=== PATIENT | female | born 1990 | race Caucasian/White ===

== ENCOUNTER → 2019-06-15 13:51 | Outpatient (CLI) | payer OTHER, MEDICAID, SELFPAY ==
--- NOTE | 2019-06-15 13:55 | DI.US.S_ITS ---
PROCEDURE: US OB >= 14 WEEKS FETUS INDICATIONS: DATES AND VIABILITY OUTSIDE/PRIOR DATING DATA: Last menstrual period (LMP): 03/05/19. LMP-based estimated date of delivery (CARRILLO): 12/10/19. First dating scan (date and location): 06/15/19. Estimated date of delivery (CARRILLO) from first dating scan: 12/07/19. TECHNIQUE: Real-time scanning was performed of the fetus, with image documentation and biometric measurements. Endovaginal scanning: No COMPARISON: None. FINDINGS: General: A single living intrauterine gestation is present. Presentation: Transverse. Placenta: Placental position is anterior, and low lying with the inferior margin of the placenta 1.9 cm above the internal cervical os. Amniotic fluid index: Subjectively normal. heart rate: 150 beats per minute. Maternal cervical canal: 3.2 cm long. Normal lower limit is 2.5 cm. biometrics: Biparietal diameter: 15 weeks 3 days Head circumference: 15 weeks 1 day Abdominal circumference: 15 weeks Femur length: 14 weeks 6 days Estimated gestational age from initial scan: not applicable. Composite gestational age from present scan: 15 weeks there is Estimated weight and percentile: N./A. Measurement variability for biometric dating: +/- 7 days from 14 weeks to 15 weeks 6 days gestation, +/- 10 days from 16 weeks to 21 weeks 6 days gestation, +/- 2 weeks from 22 weeks to 27 weeks 6 days gestation, +/- 3 weeks for 28 weeks gestation or later. weight reference: 4500 g or EFW >90/95% is considered macrosomia or large for gestational age. EFW <10% is small for gestational age. EFW 5% or less is considered intra-uterine growth restriction. IMPRESSION: 1. A 15 week 0 day single living IUP corresponding to ultrasound CARRILLO of 12/07/2019. 2. Recommend anatomic survey between 18 and 20 weeks. 3. Low-lying placenta which can be reassessed on followup examination. Dictated by: Ignacio Jameson Dash Interpreted: Antonina Mcbride MD on 06/15/2019 at 16:34 Approved by: Antonina Mcbride M.D. on 06/15/2019 at 18:55
== END ==
PROVIDERS: Visit Provider Family Medicine
DX: Z36.87 Encounter for antenatal screening for uncertain dates (principal); Z3A.15 15 weeks gestation of pregnancy
CPT/HCPCS: 36415; 76801; 76811; 80055; 81003; 86787; 86803; 86850; 86900; 86901; 87086; 87389

== ENCOUNTER → 2019-06-15 16:24 | Outpatient (CLI) | payer OTHER, MEDICAID, SELFPAY ==
[2019-06-15 16:53] LABS: Add Manual Diff / Slide Review NO; Basophils Absolute Auto 100 /uL (0-100); Basophils Percent Auto 0.5 % (0-2); Eosinophils Absolute Auto 100 /uL (0-450); Hematocrit 37.5 % (36-46); Hemoglobin 12.9 g/dL (12.0-16.0); Lymphocytes Absolute Auto 1900 /uL (1100-4500); Lymphocytes Percent Auto 17.5 % (25-40); Mean Corpuscular HGB Conc 34.5 % (30-36); Mean Corpuscular Volume 86.8 fL (80-100); Monocytes Absolute Auto 600 /uL (0-900); Monocytes Percent Auto 5.8 % (3-14); Neutrophils Absolute Auto 8300 /uL (1500-7000); Neutrophils Percent Auto 75.2 % (50-75); Platelet Count 214 X10^3/uL (150-400); Red Blood Cell Count 4.32 X10^6/uL (4.0-5.2); Red Cell Distribution Width 13.1 % (11.6-14.8)
[2019-06-15 18:00] LABS: Appearance Urine UA CLEAR; Bilirubin Urine UA NEGATIVE (NEGATIVE); Color Urine UA YELLOW; Glucose Urine UA NEGATIVE (Negative); Ketones Urine UA NEGATIVE (NEGATIVE); Leukocyte Esterase Urine UA NEGATIVE (NEGATIVE); Nitrite Urine UA NEGATIVE (Negative); Occult Blood Urine UA NEGATIVE (Negative); Protein Urine UA NEGATIVE (Negative); Specific Gravity Urine UA <=1.005 (1.000-1.035); Urobilinogen Urine UA 0.2 E.U./dL (0.2)
[2019-06-15 18:01] LABS: HIV 1 & 2 Ab/Ag 4th Gen Combo NEGATIVE (NEGATIVE); Hep C Virus Ab w/Reflex Quant NEGATIVE s/c (NEGATIVE); Hepatitis B Surface Antigen NEGATIVE s/c (NEGATIVE)
[2019-06-17 15:44] LABS: RPR Screen Nonreactive (Nonreactive)
== END ==
PROVIDERS: PCP Family Medicine; Visit Provider Family Medicine
DX: Z34.01 Encounter for supervision of normal first pregnancy, first trimester (principal)
CPT/HCPCS: 36415; 80055; 81003; 86787; 86803; 86850; 86900; 86901; 87086; 87389

== ENCOUNTER → 2019-07-16 16:01 | Outpatient (CLI) | payer OTHER, MEDICAID, SELFPAY ==
[2019-07-23 14:28] LABS: AFP, Serum 92.5 ng/mL; Brief History NTD NG; Cigarette Smoker N; Donated Egg NO; Donor Egg Age NO; Estriol, Free 1.73 ng/mL; Inhibin A, Dimeric 184 pg/mL; Maternal Ethnicity NOT GIVEN; Maternal Weight 120 lbs; Number of Fetuses 1; Previous Pregnancy Down Syndro NO; hCG, MoM 2.25; hCG, Serum 55.5 IU/mL
== END ==
PROVIDERS: PCP Family Medicine; Visit Provider Family Medicine
DX: Z34.90 Encounter for supervision of normal pregnancy, unspecified, unspecified trimester (principal); Z3A.17 17 weeks gestation of pregnancy
CPT/HCPCS: 36415; 82105; 82677; 84702; 86336

== ENCOUNTER → 2019-07-30 15:12 | Outpatient (CLI) | payer OTHER, MEDICAID, SELFPAY ==
--- NOTE | 2019-07-30 15:14 | DI.US.S_ITS ---
PROCEDURE: US OB >= 14 WEEKS FETUS INDICATIONS: ANATOMY SCAN OUTSIDE/PRIOR DATING DATA: Last menstrual period (LMP): 03/05/19. LMP-based estimated date of delivery (CARRILLO): 12/10/19. First dating scan (date and location): 06/15/19. Estimated date of delivery (CARRILLO) from first dating scan: 12/07/19. TECHNIQUE: Real-time scanning was performed of the fetus, with image documentation and biometric measurements. COMPARISON: [facility], OB >= 14 WEEKS FETUS, 06/15/2019, 14:17. FINDINGS: General: A single living intrauterine gestation is present. Live Placenta: Placental position is anterior, without previa. The previously seen low lying placenta is no longer seen. Amniotic fluid index: 19 cm, normal range is 5-24 cm. heart rate: 163 beats per minute. Maternal cervical canal: 3.2 cm long. Normal lower limit is 2.5 cm. biometrics: Biparietal diameter: 5.2 cm equals 21 weeks 5 days Head circumference: 19.2 cm equals 21 weeks 2 days Abdominal circumference: 17 cm equals 22 weeks 0 days Femur length: 3.6 cm equals 21 weeks 2 days Estimated gestational age from initial scan: 21 weeks 3 days Composite gestational age from present scan: 21 weeks 4 days Estimated weight and percentile: 441 g, 57th percentile Measurement variability for biometric dating: +/- 7 days from 14 weeks to 15 weeks 6 days gestation, +/- 10 days from 16 weeks to 21 weeks 6 days gestation, +/- 2 weeks from 22 weeks to 27 weeks 6 days gestation, +/- 3 weeks for 28 weeks gestation or later. weight reference: 4500 g or EFW >90/95% is considered macrosomia or large for gestational age. EFW <10% is small for gestational age. EFW 5% or less is considered intra-uterine growth restriction. Anatomic survey: Neuro: Ventricles are non-dilated at less than 10 mm. Cisterna magna is normal at 3-11 mm. Cerebellum is normal in size and morphology. Nuchal skin fold: Normal at less than 6 mm between 14-21 weeks gestational age. Face: Nose and lips, facial profile are normal. Spine: No evidence for spina bifida. Heart: 4-chambered heart is present, with normal ventricular outflow tracts. Diaphragm: Diaphragm is intact. Stomach: Left-sided stomach is present. Kidneys: No hydronephrosis. Normal is less than 5 mm in 2nd trimester, less than 7 mm in 3rd trimester. Cord: 3-vessel cord has orthotopic insertion. Bladder: Normal in size. Extremities: All 4 extremities identified. IMPRESSION: A single live intrauterine is seen. No anatomic abnormalities are identified. Normal interval growth when compared to the prior ultrasound examination. Dictated by: Arcenio Craft M.D. on 07/31/2019 at 10:13 Approved by: Arcenio Craft M.D. on 07/31/2019 at 10:15
== END ==
PROVIDERS: PCP Family Medicine; Visit Provider Family Medicine
DX: Z36.89 Encounter for other specified antenatal screening (principal); Z3A.21 21 weeks gestation of pregnancy
CPT/HCPCS: 76811

== ENCOUNTER → 2019-09-10 15:09 | Outpatient (CLI) | payer OTHER, MEDICAID, SELFPAY ==
[2019-09-10 17:01] LABS: Hematocrit 33.3 % (36-46); Hemoglobin 11.4 g/dL (12.0-16.0)
[2019-09-10 17:30] LABS: GTT (PREG) 1 Hour PP 50gm Dose 119 mg/dL (76-139)
== END ==
PROVIDERS: PCP Family Medicine; Referring Provider Family Medicine; Visit Provider Family Medicine
DX: O26.899 Other specified pregnancy related conditions, unspecified trimester (principal); Z67.91 Unspecified blood type, Rh negative; Z3A.26 26 weeks gestation of pregnancy
CPT/HCPCS: 36415; 82950; 85014; 85018; 86850

== ENCOUNTER → 2019-11-15 14:26 | Outpatient (CLI) | payer OTHER, MEDICAID, SELFPAY ==
[2019-11-17 08:02] LABS: Strep Grp B PCR NEG for Grp B Strep
== END ==
PROVIDERS: PCP Family Medicine; Visit Provider Family Medicine
DX: Z34.90 Encounter for supervision of normal pregnancy, unspecified, unspecified trimester (principal); Z3A.36 36 weeks gestation of pregnancy
CPT/HCPCS: 87653

== ENCOUNTER → 2019-12-14 15:37 | Outpatient (CLI) | payer OTHER, MEDICAID, SELFPAY ==
[2019-12-15 13:23] LABS: COVID19 Sendout NOT DETECTED
== END ==
PROVIDERS: PCP Family Medicine; Visit Provider Family Medicine
DX: Z34.90 Encounter for supervision of normal pregnancy, unspecified, unspecified trimester (principal)
CPT/HCPCS: 87635

== ENCOUNTER 2019-12-16 18:23 | Inpatient (IN) | payer OTHER, MEDICAID, SELFPAY ==
[2019-12-16 22:06] VITALS: BP 109/68
[2019-12-16 23:12] LABS: Add Manual Diff / Slide Review NO; Basophils Absolute Auto 100 /uL (0-100); Basophils Percent Auto 0.5 % (0-2); Eosinophils Absolute Auto 0 /uL (0-450); Eosinophils Percent Auto 0.2 % (2-4); Hemoglobin 14.1 g/dL (12.0-16.0); Lymphocytes Absolute Auto 1800 /uL (1100-4500); Lymphocytes Percent Auto 12.4 % (25-40); Mean Corpuscular HGB Conc 34.5 % (30-36); Mean Corpuscular Hemoglobin 30.5 PG (26-34); Mean Corpuscular Volume 88.2 fL (80-100); Monocytes Absolute Auto 700 /uL (0-900); Monocytes Percent Auto 4.4 % (3-14); Neutrophils Absolute Auto 12200 /uL (1500-7000); Neutrophils Percent Auto 82.5 % (50-75); Platelet Count 170 X10^3/uL (150-400); Red Blood Cell Count 4.64 X10^6/uL (4.0-5.2); Red Cell Distribution Width 14.2 % (11.6-14.8); White Blood Cell Count 14.7 X10^3/uL (4.5-11.0)
[2019-12-17] MEDS: fentaNYL 100 MCG/2 ML INJ IV (00:16)
[2019-12-17] MEDS: OXYTOCIN PREMIX 30 UNIT/500 ML PLAST..BAG IV (05:30)
[2019-12-17] MEDS: ONDANSETRON 4 MG/2 ML INJ IV (07:01)
--- NOTE | 2019-12-17 07:18 | P.HPOB_ITS ---
OB HPI Date/Time Date of admission: 12/16/19 Date Patient Seen: 12/17/19 Time Patient Seen: 07:00 History of Present Condition Chief complaint: EVAL OF LABOR : 1 Para: 0 Estimated Date of Delivery: 12/10/19 Estimated Gestational Age (weeks): 41 Narrative: Aneta Bella is a 29 year old at 41 weeks gestation. She came in last night for cervical ripening for post-dates induction however was in early labor. Overnight she progressed spontaneously and received an epidural with excellent pain control. Denies headaches, fevers, abdominal pain or new edema. has been uncomplicated. History of Present care: good care, initiated at week # (14), number of visits (10) and pounds weight gain (34) Dating criteria: LMP confirmed by 1st trimester US Ultrasounds: normal 1st trimester US and normal mid trimester US Obstetrical complications: none Medical complications: none Preadmission Labs Blood type: B (-) negative -: Antibody screen: negative, GBS status: negative, HBsAG: negative, HIV: negative and RPR/VDLR: negative -: Chlamydia screen: not detected and Gonorrhea screen: not detected -: Rubella: immune and Varicella: immune HCT: 37.5 HCAB: negative PAP: Normal Quad screen: Normal 1 hr GTT: 119 Evaluation Evaluation Baseline heart rate: 125 Variability: Moderate (11-25) monitor accelerations: Present monitor decelerations: Absent Contraction Frequency (minutes): 4 Category of Tracing: I Cervical dilation (cm): 6 Cervical effacement (%): 100 station: -1 Laboratory results: Laboratory Tests 12/16/19 12/16/19 22:30 22:30 WBC 14.7 H RBC 4.64 Hgb 14.1 Hct 41.0 MCV 88.2 MCH 30.5 MCHC 34.5 RDW 14.2 Plt Count 170 Neut % (Auto) 82.5 H Lymph % (Auto) 12.4 L [place] % (Auto) 4.4 Eos % (Auto) 0.2 L Baso % (Auto) 0.5 Neut # (Auto) 65568 H Lymph # (Auto) 1800 [place] # (Auto) 700 Eos # (Auto) 0 Baso # (Auto) 100 Blood Type B Negative Antibody Screen Negative [facility] Medical History Abnormal Pap smear of cervix (Acute) Rh negative status during (Acute) Seasonal allergic rhinitis (Acute) Surgical History [place] teeth extracted (Acute) Family History Mother Bipolar 1 disorder Schizophrenia Hyperlipidemia Depression Anxiety Father Liver disease Grandfather No problems noted. Grandmother No problems noted. Grandfather Alzheimer's dementia Grandmother History of open heart surgery Hypertension Family/Other Breast cancer Social History marital status: unmarried,living together household members: significant other pets and animals: Yes (dog X 1) education level: high school occupational status: employed current occupational exposures/hazards: No special fatuma needs: No leisure activities: exercise Smoking Status: Never smoker alcohol intake: never substance use type: does not use Meds Home Medications and Allergies Home Medications Medication Instructions Recorded Confirmed Type prenat.vits,gerardo,[id number] 1 tab PO DAILY 06/15/19 12/16/19 History Allergies Allergy/AdvReac Type Severity Reaction Status Date / Time No Known Drug Allergies Allergy Verified 06/17/19 15:09 Review of Systems Review of Systems ROS: Yes All systems reviewed with the patient and are negative except as otherwise documented Exam Vital Signs (past 8 hours): Temperature 35.9? blood pressure 99/61 heart rate 74 Const General: healthy appearing and comfortable HENMT Head: normal to inspection Ears: hearing grossly normal bilaterally Nose: external nose normal Face and sinus: normal facial exam Mouth: oral mucosae normal Eyes General: appearance normal, both eyes and all related structures Neck Neck: normal visual inspection Resp Effort & Inspection: normal respiratory effort Cardio Rate: regular rate Rhythm: regular rhythm GI Other: Gravid External Female Exam: external appearance normal Manual OB Exam: dilated 6, effaced fully and station -1 Presentation: vertex Estimated Weight (lbs): 8 Amniotic Fluid: meconium (thin) Back/Spine/Pelvis Back: normal to inspection Skin General: no rashes or lesions noted Extrem General: normal to inspection and no pedal edema Objective Labs Result Diagrams: 12/16/19 22:30 Labs: Laboratory Results - last 24 hr 12/16/19 12/16/19 22:30 22:30 WBC 14.7 H RBC 4.64 Hgb 14.1 Hct 41.0 MCV 88.2 MCH 30.5 MCHC 34.5 RDW 14.2 Plt Count 170 Neut % (Auto) 82.5 H Lymph % (Auto) 12.4 L [place] % (Auto) 4.4 Eos % (Auto) 0.2 L Baso % (Auto) 0.5 Neut # (Auto) 68667 H Lymph # (Auto) 1800 [place] # (Auto) 700 Eos # (Auto) 0 Baso # (Auto) 100 Blood Type B Negative Antibody Screen Negative Assessment and Plan Assessment and Plan Assessment and Plan narrative: 29-year-old at 41 weeks gestation in active labor. GBS negative, Rh negative, COVID-19 negative. She came in for cervical ripening for post-dates induction last night however was entering labor on her own. Overnight she received an epidural with subsequent decrease in contractions. Now lisa regularly on Pitocin. Plan Expected management Comfortable with epidural
[2019-12-17] MEDS: FENT 2MCG/ML BUPIV 0.125% EPI 200 MCG/100 ML PLAST..BAG 10 MCG EPIDURAL (09:43)
--- NOTE | 2019-12-17 12:29 | PM.OBPNLAB ---
Date/Time Date Patient Seen: 12/17/19 Time Patient Seen: 12:00 Pain Control Pain control: tolerating well and epidural Comments: Feeling constant rectal pressure but cannot feel contractions Pelvic Exam Dilation (cm): 10 Effacement (%): 100 station: 0 Amniotic membrane status: Ruptured Contractions Pitocin rate (mU/min): 3 Contraction frequency (min): 3 Contraction pattern: Regular Status status: Category l Heart Rate Baseline: 120 Monitor Accelerations: Present Monitor Decelerations: Early Monitor Variability: Moderate Assessment and Plan Assessment: active labor Plan: continuous present management Comments: Begin pushing
--- NOTE | 2019-12-17 14:15 | P.PCNOB_ITS ---
Labor & Delivery Delivery date: 12/17/19 Intrapartal events: None Delivery augmentation: rupture of membranes and pitocin Delivery monitor: external FHT Route of delivery: L&D Laceration Description: Perineal - 2nd Degree Delivery repair: vicryl Estimated blood loss (mL): 300 Anesthesia type: Epidural Narrative: BRIEF HISTORY: Patient is a 29-year-old at 41 weeks who gave on 12/17/19 at 1352. CARRILLO: 12/10/19 Hospital problems: Forty-one weeks Rh-negative STAGE I: Labor Patient presented to the center in early labor the evening of 12/16/19. She progressed spontaneously and received an epidural with excellent pain control. Contractions spaced out after the epidural so Pitocin was started for labor augmentation. Artificial rupture membranes occurred at 7:04 a.m. on 12/17/19 with thin meconium. heart tones were category 1 throughout stage I. STAGE II: Delivery Patient was found to be complete at 12:02. She went on to deliver a vigorous male at 1:52 p.m.. was vertex and KIMBERLY. He was immediately placed on mother's abdomen where he was noted to have terminal meconium. Cord was clamped and cut after 1 minutes delay. Apgars were 9 and 9. No resuscitation of the required. Second stage duration 1 hour and 50 minutes. STAGE III: Placenta/Cord Placenta delivered at 1:56 p.m. after active management and appeared intact with a three-vessel cord. Pitocin bolus given after delivery of placenta. A second-degree midline perineal laceration was repaired in the usual fashion with 3-0 Vicryl with good hemostasis. EBL: 300 mL. Needle and sponge counts were correct. The vagina was inspected and no items were left in situ. Patient was doing well with [facility], her and partner at bedside. Baby 1: gender: Male Presentation: vertex position: Right Occiput Anterior Placenta delivery description: Spontaneous cord vessel description: 3 Vessels score (1 min): 9 score (5 min): 9
[2019-12-17] MEDS: IBUPROFEN 600 MG TABLET PO (22:44)
--- NOTE | 2019-12-18 09:23 | PM.OBDS.1 ---
Discharge Providers Provider Date of admission: 12/16/19 18:23 Discharge Date: 12/18/19 Primary care physician: Lora Zhao DO Consults: 12/18/19 14:18 Consult to Manager Supplier Routine Comment: Discharge provider: Lora Zhao DO Summary Hospital Course Date Patient Seen: 12/18/19 Time Patient Seen: 08:24 Procedures: Spontaneous vaginal delivery Epidural analgesia Hospital Course: Patient is a 29-year-old after uncomplicated spontaneous vaginal delivery at 41 weeks gestation on 12/17/19. Patient presented for post-dates induction but was found to be in early labor and progressed spontaneously. After epidural placement contractions spaced out so she was started on Pitocin and progressed well. She went on to deliver a vigorous 8 lb 10 oz male. A second-degree vaginal and perineal laceration was repaired with good hemostasis. patient did well. She was eating, ambulating, voiding and passing flatus without difficulty. Breast-feeding was going well. Bleeding was moderate. Pain controlled with ibuprofen only. Advised patient to call for fevers, severe pain or bleeding through more than a pad an hour. Follow-up in clinic in 6 weeks. Peripartum Data Infant Delivery Method: Natural Vaginal Laceration description: Perineal - 2nd Degree complications: none [place] 1: Gender: Male Disposition of : home Discharge Diagnosis (1) 41 weeks gestation of : Status: Acute (2) Spontaneous vaginal delivery: Status: Acute (3) Rh negative status during : Status: Acute Status at Discharge Functional status at discharge: independent ambulation Overall status at discharge: patient is progressing back to baseline Time Spent with Patient Time attestation: Total time spent providing and/or coordinating discharge services: Time spent: Less than 30 minutes Objective Labs Result Diagrams: 12/16/19 22:30 Labs: Laboratory Results - last 24 hr 12/18/19 06:48 Maternal Bleed Negative Exam Vital Signs (past 8 hours): Temperature 98.6? blood pressure 91/71 heart rate 95 respirations 17 Narrative Exam Narrative: General: Awake and alert, no acute distress. HEENT: NCAT, EOMI, moist oral mucosa CV: Regular rate and rhythm, no murmurs, rubs or gallops Lungs: CTAB, no wheezes, rales, or rhonchi Abdomen: Soft, nontender; bowel tones active; uterus firm 1 cm below umbilicus Extremities: Warm, no edema, 2+ pedal pulses bilaterally Discharge Plan Discharge Plan Patient Disposition: Home Discharge orders & Medications Prescriptions: New docusate sodium [DOK] 100 mg Capsule 100 mg PO DAILY Qty: 30 RF: 0 ibuprofen 600 mg Tablet 600 mg PO Q6HR PRN (Reason: Pain, Mild (1-3)) Qty: 30 RF: 0 Continued prenat.vits,gerardo,[id number]-[id number]-[id number] Tablet 1 tab PO DAILY RF: 0 Follow up/Referrals: Lora Zhao DO [Primary Care Provider] - 6 Weeks Diet/Activity/Treatments Diet: Diet as Tolerated Skin/Wound/Dressing Care Report to your healthcare provider any signs of infection, such as:: chills, fever, increased pain, unusual drainage and unusual redness Visit Report/Discharge Packet Visit Report Forms: Patient Portal/API, Stroke Signs & Symptoms Discharge Data Primary Care Provider: Lora Zhao
[2019-12-18] MEDS: DERMOPLAST SPRAY 20% 60 ML 1 SPRAY TOP (09:40)
[2019-12-18] MEDS: IBUPROFEN 600 MG TABLET PO (09:41)
[2019-12-18] MEDS: DOCUSATE 100 MG CAPSULE PO (09:42)
[2019-12-18] MEDS: RHO(D) IMMUNE GLOBULIN 1,500 UNIT SYRINGE 1500 UNIT IM (13:38)
[2019-12-18 14:13] VITALS: BP 78/52; PULSE 88; RESP 16; TEMP 36.3
== END 2019-12-18 16:10 | disposition home or self-care (01) | DRG 560 ==
PROVIDERS: Admitting Provider Family Medicine; PCP Family Medicine; Referring Provider Family Medicine; Visit Provider Family Medicine
DX: O48.0 Post-term pregnancy (principal); Z3A.41 41 weeks gestation of pregnancy; Z37.0 Single live birth; O70.1 Second degree perineal laceration during delivery; O77.0 Labor and delivery complicated by meconium in amniotic fluid
CPT/HCPCS: 01967; 36415; 59050; 59200; 59409; 85025; 85461; 86850; 86900; 86901; G0379; J2405; J2590; J2790; J3010

== ENCOUNTER → 2022-11-25 12:39 | Outpatient (CLI) | payer OTHER, MEDICAID, SELFPAY ==
[2022-11-25 14:10] LABS: Add Manual Diff / Slide Review NO; Basophils Absolute Auto 0 /uL (0-100); Basophils Percent Auto 0.4 % (0-2); Eosinophils Absolute Auto 100 /uL (0-450); Eosinophils Percent Auto 0.8 % (2-4); Hematocrit 36.6 % (36-46); Hemoglobin 12.7 g/dL (12.0-16.0); Lymphocytes Absolute Auto 1600 /uL (1100-4500); Lymphocytes Percent Auto 18.8 % (25-40); Mean Corpuscular HGB Conc 34.7 % (30-36); Mean Corpuscular Hemoglobin 29.3 PG (26-34); Mean Corpuscular Volume 84.7 fL (80-100); Monocytes Absolute Auto 500 /uL (0-900); Monocytes Percent Auto 5.8 % (3-14); Neutrophils Absolute Auto 6200 /uL (1500-7000); Neutrophils Percent Auto 74.2 % (50-75); Platelet Count 191 X10^3/uL (150-400); Red Blood Cell Count 4.33 X10^6/uL (4.0-5.2); Red Cell Distribution Width 12.5 % (11.6-14.8); White Blood Cell Count 8.3 X10^3/uL (4.5-11.0)
[2022-11-25 18:20] LABS: Hepatitis B Surface Antigen NEGATIVE s/c (NEGATIVE)
[2022-11-25 18:29] LABS: HIV 1 & 2 Ab/Ag 4th Gen Combo NEGATIVE (NEGATIVE); Hep C Virus Ab w/Reflex Quant NEGATIVE s/c (NEGATIVE)
[2022-11-25 19:58] LABS: Urine N gonorrhoeae NOT DETECTED
[2022-11-25 19:59] LABS: Urine Chlamydia NOT DETECTED
[2022-11-26 08:09] LABS: Varicella IgG Antibody 2608 index (Immune >165)
[2022-11-27 05:13] LABS: RPR Screen Non Reactive (Non Reactive)
== END ==
PROVIDERS: PCP Family Medicine; Referring Provider Family Medicine; Visit Provider Family Medicine
DX: Z34.81 Encounter for supervision of other normal pregnancy, first trimester (principal); Z3A.11 11 weeks gestation of pregnancy
CPT/HCPCS: 36415; 80055; 86787; 86803; 86850; 86900; 86901; 87086; 87389; 87491; 87591

== ENCOUNTER → 2022-12-30 15:45 | Outpatient (CLI) | payer OTHER, MEDICAID, SELFPAY ==
[2023-01-01 21:57] LABS: AFP, Serum 21.4 ng/mL (.); Estriol, Free 1.25 ng/mL (.); Inhibin A, MoM 0.58 (.); Maternal Ethnicity Caucasian (.); Maternal Weight 124 lbs (.); Number of Fetuses No (.); OSBR Risk 1 IN 10000 (.); Results Report (.); Test Results *Screen Negative* (.); hCG, MoM 0.87 (.); hCG, Serum 30975 mIU/mL (.)
[2023-01-02 10:21] LABS: AFP PDF SCANNED
== END ==
PROVIDERS: PCP Family Medicine; Referring Provider Family Medicine; Visit Provider Family Medicine
DX: Z34.82 Encounter for supervision of other normal pregnancy, second trimester (principal); Z3A.17 17 weeks gestation of pregnancy
CPT/HCPCS: 36415; 82105; 82677; 84702; 86336

== ENCOUNTER → 2023-02-03 13:45 | Outpatient (CLI) | payer OTHER, MEDICAID, SELFPAY ==
--- NOTE | 2023-02-03 13:46 | DI.US.S_ITS ---
PROCEDURE: US OB <= 14 WEEKS FETUS INDICATIONS: ANATOMY OUTSIDE/PRIOR DATING DATA: Last menstrual period (LMP): August 30, 2022 LMP-based estimated date of delivery (CARRILLO): June 06, 2023 First dating scan (date and location): November 25, 2022 Estimated date of delivery (CARRILLO) from first dating scan: June 05, 2023 TECHNIQUE: Real-time scanning was performed of the fetus, with image documentation and biometric measurements. Endovaginal scanning: Not performed COMPARISON: None. FINDINGS: General: A single living intrauterine gestation is present. Presentation: Breech Placenta: Placental position is anterior , without previa. Amniotic fluid index: 16.1 cm, normal range is 5-24 cm. Single deepest vertical pocket is 5.5 cm. heart rate: 150 beats per minute. Maternal cervical canal: 3.2 cm long. Normal lower limit is 2.5 cm. biometrics: Biparietal diameter: 5.3 cm, 22 weeks, 0 days Head circumference: 20.1 cm, 22 weeks, 2 days Abdominal circumference: 18.9 cm, 23 weeks, 5 days Femur length: 3.8 cm, 22 weeks, 2 days Clinically estimated gestational age: 22 weeks, 3 days Composite gestational age from present scan: 22 weeks, 4 days Estimated weight and percentile: 547 g, 69% Anatomic survey: Neuro: Ventricles are non-dilated at less than 10 mm. Cisterna magna is normal at 3-11 mm. Cerebellum is normal in size and morphology. Nuchal skin fold: Normal at less than 6 mm between 14-21 weeks gestational age. Face: Nose and lips, facial profile are normal. Spine: No evidence for spina bifida. Heart: 4-chambered heart is present, with normal ventricular outflow tracts. Diaphragm: Diaphragm is intact. Stomach: Left-sided stomach is present. Kidneys: No hydronephrosis. Normal is less than 5 mm in 2nd trimester, less than 7 mm in 3rd trimester. Cord: 3-vessel cord has orthotopic insertion. Bladder: Normal in size. Extremities: All 4 extremities identified. IMPRESSION: 1. Single live intrauterine gestation with a composite gestational age of 22 weeks, 4 days which is concordant with dates by initial scan. No sonographic anatomic abnormalities. We strive to produce accurate, complete, and clear reports of imaging services. To assist us in improving patient care, this report was composed using standard report templates and voice recognition software. Therefore, it may contain abnormal punctuation, insertions and/or omissions. Occasional wrong-word or sound-alike substitutions may occur. Though we review the report and make efforts to correct it, we do recommend that the report be read carefully in proper context to recognize any text inaccuracies. Dictated by: Alana Munoz M.D. on 02/03/2023 at 16:52 Approved by: Alana Munoz M.D. on 02/03/2023 at 16:55
== END ==
PROVIDERS: PCP Family Medicine; Referring Provider Family Medicine; Visit Provider Family Medicine
DX: Z34.82 Encounter for supervision of other normal pregnancy, second trimester (principal); Z3A.22 22 weeks gestation of pregnancy
CPT/HCPCS: 76801

== ENCOUNTER → 2023-04-07 10:56 | Outpatient (CLI) | payer OTHER, MEDICAID, SELFPAY ==
[2023-04-07 12:34] LABS: Hematocrit 33.8 % (36-46); Hemoglobin 11.9 g/dL (12.0-16.0)
[2023-04-07 12:53] LABS: GTT (PREG) 1 Hour PP 50gm Dose 152 mg/dL (76-139)
== END ==
PROVIDERS: PCP Family Medicine; Referring Provider Family Medicine; Visit Provider Family Medicine
DX: Z34.83 Encounter for supervision of other normal pregnancy, third trimester (principal); Z3A.31 31 weeks gestation of pregnancy
CPT/HCPCS: 36415; 82950; 85014; 85018; 86850

== ENCOUNTER → 2023-04-14 07:42 | Outpatient (CLI) | payer OTHER, MEDICAID, SELFPAY ==
[2023-04-14 09:37] LABS: Glucose Fasting 90 mg/dL (70-100)
[2023-04-14 10:08] LABS: Glucose 1 Hour 182 mg/dL (70-170)
[2023-04-14 11:29] LABS: Glucose Tol Interpretation INTERPRETATION
[2023-04-14 11:59] LABS: Glucose 2 Hour 137 mg/dL (70-140)
[2023-04-14 13:15] LABS: Glucose 3 Hour 128 mg/dL (70-115)
== END ==
PROVIDERS: PCP Family Medicine; Referring Provider Family Medicine; Visit Provider Family Medicine
DX: R73.09 Other abnormal glucose (principal)
CPT/HCPCS: 82951; 82952

== ENCOUNTER → 2023-05-07 12:25 | Outpatient (CLI) | payer OTHER, MEDICAID, SELFPAY ==
--- NOTE | 2023-05-07 12:25 | DI.US.S_ITS ---
PROCEDURE: US OB LIMITED INDICATIONS: GROWTH OUTSIDE/PRIOR DATING DATA: Last menstrual period (LMP): 08/30/2022. LMP-based estimated date of delivery (CARRILLO): 06/06/2023. First dating scan (date and location): 11/25/2022. Estimated date of delivery (CARRILLO) from first dating scan: 06/05/2023. TECHNIQUE: Real-time scanning was performed of the fetus, with image documentation and biometric measurements. Endovaginal scanning: Not performed. COMPARISON: [facility], , OB <= 14 WEEKS FETUS, 02/03/2023, 13:59. FINDINGS: General: A single living intrauterine gestation is present. Presentation: Vertex. Placenta: Placental position is anterior , without previa. Amniotic fluid index: 10.5 cm, normal range is 5-24 cm. Single deepest vertical pocket is 4.0 cm. heart rate: 162 beats per minute. Maternal cervical canal: Not well visualized. biometrics: Biparietal diameter: 8.7 cm 35 weeks 0 days Head circumference: 31.6 cm 35 weeks 3 days Abdominal circumference: 30.9 cm 35 weeks 0 days Femur length: 6.8 cm 35 weeks 1 day estimated gestational age: 35 weeks 0 days Composite gestational age from present scan: 35 weeks 1 day Estimated weight and percentile: 2579 g, 31st percentile Other: Not applicable. IMPRESSION: 1. Single living intrauterine in vertex presentation. 2. Estimated weight at the 31st percentile. We strive to produce accurate, complete, and clear reports of imaging services. To assist us in improving patient care, this report was composed using standard report templates and voice recognition software. Therefore, it may contain abnormal punctuation, insertions and/or omissions. Occasional wrong-word or sound-alike substitutions may occur. Though we review the report and make efforts to correct it, we do recommend that the report be read carefully in proper context to recognize any text inaccuracies. Dictated by: Pino Barnes M.D. on 05/08/2023 at 11:25 Approved by: Pino Barnes M.D. on 05/08/2023 at 11:32
== END ==
PROVIDERS: PCP Family Medicine; Referring Provider Family Medicine; Visit Provider Family Medicine
DX: O24.419 Gestational diabetes mellitus in pregnancy, unspecified control (principal)
CPT/HCPCS: 76815

== ENCOUNTER → 2023-05-13 10:24 | Outpatient (CLI) | payer OTHER, MEDICAID, SELFPAY ==
[2023-05-14 12:10] LABS: Strep Grp B PCR NEG for Grp B Strep
== END ==
PROVIDERS: PCP Family Medicine; Visit Provider Family Medicine
DX: Z34.81 Encounter for supervision of other normal pregnancy, first trimester (principal)
CPT/HCPCS: 87653

== ENCOUNTER 2023-06-12 07:37 | Inpatient (IN) | payer OTHER, MEDICAID, SELFPAY ==
[2023-06-12 08:22] LABS: Add Manual Diff / Slide Review NO; Basophils Absolute Auto 0 /uL (0-100); Basophils Percent Auto 0.3 % (0-2); Eosinophils Absolute Auto 0 /uL (0-450); Eosinophils Percent Auto 0.4 % (2-4); Hematocrit 36.5 % (36-46); Hemoglobin 12.5 g/dL (12.0-16.0); Lymphocytes Absolute Auto 1600 /uL (1100-4500); Lymphocytes Percent Auto 13.8 % (25-40); Mean Corpuscular HGB Conc 34.2 % (30-36); Mean Corpuscular Hemoglobin 29.9 PG (26-34); Mean Corpuscular Volume 87.4 fL (80-100); Monocytes Absolute Auto 400 /uL (0-900); Monocytes Percent Auto 3.4 % (3-14); Neutrophils Absolute Auto 9500 /uL (1500-7000); Neutrophils Percent Auto 82.1 % (50-75); Platelet Count 140 X10^3/uL (150-400); Red Blood Cell Count 4.17 X10^6/uL (4.0-5.2); Red Cell Distribution Width 13.6 % (11.6-14.8); White Blood Cell Count 11.5 X10^3/uL (4.5-11.0)
[2023-06-12] MEDS: OXYTOCIN PREMIX 30 UNIT/500 ML PLAST..BAG IV (08:41)
[2023-06-12] MEDS: LACTATED RINGERS 1,000 ML 100 ML IV ×3 (08:41→15:41)
[2023-06-12 08:47] VITALS: BP 97/66
--- NOTE | 2023-06-12 09:39 | P.HPOB_ITS ---
OB HPI Date/Time Date of admission: 06/12/23 Date Patient Seen: 06/12/23 Time Patient Seen: 07:45 History of Present Condition Chief complaint: observation CARRILLO Calculator 2 Estimated Delivery Date Method Current WG Current Estimate 06/06/23 Manual 40w 6d Final CARRILLO - SAEED Other Estimates 06/06/23 LMP (Uncertain) 40w 6d 06/05/23 Ultrasound #1 41w 0d Estimated Gestational Age (weeks): 40w6d : 2 Para: 1 Narrative: here for induction of labor for GDMA1 and post-dates. Minimal contractions. Vertex confirmed in clinic 06/09. care: good care Dating criteria OB: LMP confirmed by 1st trimester US Ultrasounds: normal 1st trimester US and normal mid trimester US Obstetrical complications: gestational diabetes (diet controlled) Medical complications OB: none Indications Indication for induction OB: gestational diabetes and post dates Preadmission Labs Last OB Lab Results: 2 Blood Type B Negative 06/12/23 08:00 Antibody Screen Positive 06/12/23 08:00 Hematocrit 36.5 % (36-46) 06/12/23 08:00 Hemoglobin 12.5 g/dL (12.0-16.0) 06/12/23 08:00 Hepatitis B Surface Antigen Negative s/c (NEGATIVE) 11/25/22 13 :08 Hepatitis C Antibody Negative s/c (NEGATIVE) 11/25/22 13:08 Rubella Antibody 124.0 IU/mL (>15) 11/25/22 13:08 Varicella-Zoster IgG Antibody 2608 index (Immune >165) 11/25/22 13:08 Glucose 1 Hour 152 mg/dL (76-139) H 04/07/23 11:13 Group B Streptococcus (PCR) Neg for grp b strep 05/13/23 10:24 Glucose Tolerance Testin hr Prior (ies) Past Pregnancies Del. Date GA/Weeks Labor Lgth Wt Sex Route Outcome Anesthesia Place Delv Breastfeed Preg Comp Name 12/17/19 41 8 8 lb 10 oz Male vaginal live - full term IH 5 1/2 months none [place] Evaluation Evaluation Baseline heart rate: 135 Variability: Average (6-10) monitor accelerations: Present Monitor Decelerations: Absent Category of Tracing: Reactive Status: Category l Dilation (cm): 3 Effacement (%): 90 Dilation: 3-4 cm Effacement: >/=80% station: -2 Position of cervix: mid Consistency: soft Valentin score: 9 PFSH Medical History (Updated 05/02/23 @ 10:25 by Jenny Shook MD) Abnormal Pap smear of cervix Seasonal allergic rhinitis Surgical History [place] teeth extracted Family History (Updated 10/30/22 @ 10:09 by Janet Huitron RN) Mother Bipolar 1 disorder Schizophrenia Hyperlipidemia Depression Anxiety Diabetes mellitus Father Liver disease Grandfather No problems noted. Grandmother No problems noted. Grandfather Alzheimer's dementia Grandmother History of open heart surgery Hypertension Heart disease Family/Other Breast cancer Social History marital status: unmarried,living together number of children: 1 household members: significant other lives independently: Yes caregiver/support person: Yes housing: house pets and animals: Yes (1 dog) education level: college occupational status: employed current occupational exposures/hazards: No special fatuma needs: No travel history: recent leisure activities: exercise seatbelt use: always helmet use: Yes water heater temp set < 120 deg: Yes working smoke detector in home: Yes fire extinguisher in home: Yes carbon monox detector in home: Yes firearms in home: Yes firearms unloaded and locked: Yes do you feel safe at home: Yes Smoking Status: Never smoker second hand exposure: Yes (at work) alcohol intake: former substance use type: does not use during the past year weight has: remained stable well-balanced diet: daily or most days daily servings fruits/ve-4 caffeine: Yes (double shot espresso in AM) Type(s) of exercise: walking, bicycling and other Meds Home Medications and Allergies Home Medications Medication Instructions Recorded Confirmed Type prenat.vits,gerardo,[id number] 1 tab PO DAILY 06/15/19 06/12/23 History glucometer #1 04/22/23 06/09/23 Rx glucose test strips #360 04/22/23 06/09/23 Rx lancets #360 04/22/23 06/09/23 Rx sharps container #1 04/22/2323 Rx Allergies Allergy/AdvReac Type Severity Reaction Status Date / Time No Known Drug Allergies Allergy Verified 06/09/23 10:32 Review of Systems Review of Systems Narrative: as per HPI Objective Labs 06/12/23 08:00 Labs: Laboratory Results - last 24 hr 06/12/23 08:00 WBC 11.5 H RBC 4.17 Hgb 12.5 Hct 36.5 MCV 87.4 MCH 29.9 MCHC 34.2 RDW 13.6 Plt Count 140 L Neut % (Auto) 82.1 H Lymph % (Auto) 13.8 L [place] % (Auto) 3.4 Eos % (Auto) 0.4 L Baso % (Auto) 0.3 Neut # (Auto) 9500 H Lymph # (Auto) 1600 [place] # (Auto) 400 Eos # (Auto) 0 Baso # (Auto) 0 Blood Type B Negative Antibody Screen Positive Antibody Identification Anti-D Assessment and Plan Assessment and Plan Assessment and Plan narrative: at 40w6d here for IOL for GDMA1, post dates. GBS negative. -will start with pitocin, plan for AROM at 1pm -anticipate
--- NOTE | 2023-06-12 11:23 | P.PCN_ITS ---
[facility] <Fly [place], DO - Last Filed: 06/13/23 06:47> Pre-procedure Procedure: Continuous Lumbar Epidural for L&D Attending OB provider: Jany Sawyer PMH/ROS narrative: term induction, GDM, diet controlled. no underlying PMH/comorbidity. ASA Class: II Labs: Hct 36.5 % (36-46) 06/12/23 08:00 Plt Count 140 X10^3/uL (150-400) L 06/12/23 08:00 Medications: Current Medications Generic Name Dose Route Start Last Admin Trade Name Freq PRN Reason Stop Dose Admin Calcium Carbonate 1,000 mg 06/12/23 08:03 Calcium Carbonate 500 Mg Tab PO Q4HR PRN Dyspepsia Carboprost Tromethamine 250 mcg 06/12/23 08:03 Carboprost 250 Mcg/Ml Ampul IM Q90M PRN Bleeding Diphenhydramine HCl 12.5 mg 06/12/23 10:20 Diphenhydramine 50 Mg/Ml Vial IV Q10M PRN Pruritis Ephedrine Sulfate 10 mg 06/12/23 10:20 Ephedrine 50 Mg/Ml Vial IV Q5M PRN Blood pressure decrease more than 20% of baseline. Fentanyl 50 mcg 06/12/23 08:03 Fentanyl 100 Mcg/2 Ml Inj IV Q1H PRN Pain, Moderate (4-6) Oxytocin/Lactated Ringer's 30 unit in 500 mls @ 200 mls/hr 06/12/23 08:03 Oxytocin Premix IV CONT PRN Bleeding Protocol Tranexamic Acid 1,000 mg/ 100 mls @ 200 mls/hr 06/12/23 08:03 Sodium Chloride IV NOW PRN Bleeding Oxytocin/Lactated Ringer's 30 unit in 500 mls @ 2 mls/hr 06/12/23 08:15 06/12/23 08:41 Oxytocin Premix IV 2 milliunit/min TITRATE SHELBI 2 mls/hr Administration Protocol 2 MILLIUNIT/MIN Lactated Ringer's 1,000 mls @ 100 mls/hr 06/12/23 08:15 06/12/23 08:41 Lactated Ringers IV 100 mls/hr CONT SHELBI Administration FENT 2MCG/ML BUPIV 0.1% EPI 200 mcg in 100 mls @ 11 mls/hr 06/12/23 10:30 Fentanyl/Bupiv/Ns 2mcg/Ml - 0.1% EPIDURAL CONT SHELBI Lidocaine HCl 20 ml 06/12/23 08:03 Lidocaine 1% 20 Ml INJ INTRA-OP PRN Post Delivery Methylergonovine Maleate 0.2 mg 06/12/23 08:03 Methylergonovine 0.2 Mg Tablet PO Q6HR PRN Heavy Bleeding Methylergonovine Maleate 0.2 mg 06/12/23 08:03 Methylergonovine 0.2 Mg/Ml Vial IM NOW PRN Bleeding Misoprostol 800 mcg 06/12/23 08:03 Misoprostol 200 Mcg Tablet NC NOW PRN Bleeding Misoprostol 400 mcg 06/12/23 08:03 Misoprostol 200 Mcg Tablet SL NOW PRN Bleeding Nalbuphine HCl 2.5 mg 06/12/23 10:20 Nalbuphine 20 Mg/Ml Ampul IV Q10M PRN Pruritis Naloxone HCl 0.2 mg 06/12/23 08:03 Naloxone 0.4 Mg/Ml Vial IV Q2MIN PRN Opiate Reversal Ondansetron HCl 4 mg 06/12/23 08:03 Ondansetron 4 Mg/2 Ml Inj IV Q4HR PRN Nausea And Vomiting Oxytocin 10 unit 06/12/23 08:03 Oxytocin 10 Unit/Ml Vial IM NOW PRN Bleeding Allergies: Allergies Allergy/AdvReac Type Severity Reaction Status Date / Time No Known Drug Allergies Allergy Verified 06/09/23 10:32 Procedure Insertion date: 06/12/23 Insertion time: 10:57 Prep/Local: betadine x3 and 1% lidocaine Interspace: L2-3 Patient position: sitting Needle: 18 gauge Sunnovations (CSE: 27g Pencan through Hustead, clear CSF, 2.5mg MPF bupiv) Loss of resistance with: saline NA at (cm): 5 Catheter placed at SKIN (cm): 11 Catheter in SPACE (cm): 6 Insertion: No CSF, No Blood, No Paresthesia with insertion, No Paresthesia with injection and No Test dose reaction Initial Medications TEST DOSE time: 11:00 TEST DOSE: 1.5% lidocaine with epinephrine 1:200k (mL): 3 BOLUS DOSE time: 11:08 BOLUS DOSE (mL): 4 BOLUS DOSE med: other (infusate) Infusion INFUSION: 0.125% bupivacaine and with fentanyl 2 mcg/mL Initial rate (mL/hr): 8 Post-procedure Anesthesia time START: 10:44 <Isa Oliveira DO - Last Filed: 06/13/23 02:53> Post-procedure Anesthesia time END: 20:44 Post-procedure Anesthesia Assessment: Yes CV function: HR/BP stable, Yes Resp function: RR/sat/airway adequate, Yes Post-op hydration adequate, Yes Pain control adequate, Yes Nausea & vomiting absent, Yes Temperature > 36 C and Yes Mental status appropriate
--- NOTE | 2023-06-12 13:49 | PM.OBPNLAB ---
Date/Time Date Patient Seen: 06/12/23 Time Patient Seen: 12:30 Pain Control Pain control: epidural Pelvic Exam Dilation (cm): 3 Effacement (%): 90 station: -2 Amniotic membrane status: Intact Contractions Contractions on admission: regular Monitor mode: External Pitocin rate (mU/min): 14 Contraction frequency (min): 4 Contraction duration (min): 1 Contraction pattern: Regular Status status: Category l Assessment and Plan Assessment: induction ongoing Plan: continuous present management
[2023-06-12] MEDS: ONDANSETRON 4 MG/2 ML INJ IV (15:41)
[2023-06-12] MEDS: FENT 2MCG/ML BUPIV 0.1% EPI 200 MCG/100 ML PLAST..BAG 11 MCG EPIDURAL (17:22)
--- NOTE | 2023-06-12 17:59 | PM.OBPNLAB ---
Date/Time Date Patient Seen: 06/12/23 Time Patient Seen: 17:15 Pain Control Pain control: tolerating well Pelvic Exam Dilation (cm): 5.5 Effacement (%): 90 station: -2 Amniotic membrane status: Ruptured Comments: AROM, clear fluid Contractions Monitor mode: External Pitocin rate (mU/min): 18 Contraction frequency (min): 4 Contraction pattern: Regular Status status: Category l Heart Rate Baseline: 135 Monitor Accelerations: Present Monitor Decelerations: Absent Monitor Variability: Moderate Assessment and Plan Assessment: active labor and induction ongoing Plan: continuous present management Comments: AROM with clear fluid. Continue pitocin.
--- NOTE | 2023-06-12 21:08 | PM.OBPRVD ---
Events: Gestational Diabetes Labor & Delivery Delivery date: 06/12/23 Induction method: per pitocin protocol Delivery augmentation: rupture of membranes Delivery monitor: external FHT Route of delivery: L&D Laceration Description: Periurethral - 2nd Degree Delivery repair: vicryl Estimated blood loss (mL): 250 Anesthesia Type: Epidural Narrative: at 40w6d induced for post dates, gestational diabetes diet controlled. Augmentation with pitocin, AROM. Excellent pushing over 2 contractions. Second degree perineal laceration repaired with 3-0 vicryl. No complications. Baby 1: gender: Female Position: Left Occiput Anterior Placenta delivery description: Spontaneous Cord Vessel Description: 3 Vessels score (1 min): 9 score (5 min): 9 Plan for aftercare: Routine care
[2023-06-12] MEDS: IBUPROFEN 600 MG TABLET PO (23:15)
[2023-06-13] MEDS: DERMOPLAST SPRAY 20% 60 ML 1 SPRAY TOP (01:03)
[2023-06-13 01:05] VITALS: TEMP 37.3
[2023-06-13] MEDS: PRENATAL VIT,CALC/IRON/FOLIC 1 TABLET 1 TAB PO (08:49)
[2023-06-13] MEDS: IBUPROFEN 600 MG TABLET PO ×2 (08:49→14:39)
--- NOTE | 2023-06-13 13:20 | PM.OBDS.1 ---
Discharge Providers Provider Date of admission: 06/12/23 07:37 Discharge Date: 06/13/23 Primary care physician: MD Digna Consults: 06/13/23 21:12 Consult to Drug Discovery Informatics Specialist Routine Comment: Discharge provider: Jany Hopper MD Summary Hospital Course Date Patient Seen: 06/13/23 Time Patient Seen: 12:00 Diagnoses: Normal spontaneous vaginal delivery of term Hospital Course: Patient was induced with pitocin, AROM for post dates/GDMA1. Uncomplicated vaginal delivery. Recovering well. Voiding and ambulating well. without difficulty. Peripartum Data Delivery Method: Natural Vaginal Laceration Description: Perineal - 2nd Degree complications: none [place] 1: Gender: Female Disposition of : home Discharge Diagnosis (1) Gestational diabetes mellitus (GDM): Status: Acute (2) Vaginal delivery: Status: Acute Status at Discharge Cognitive/behavioral status at discharge: at baseline, oriented Functional status at discharge: independent ambulation Time Spent with Patient Time attestation: Total time spent providing and/or coordinating discharge services: Time spent: Less than 30 minutes Objective Labs 06/12/23 08:00 Exam Narrative Exam Narrative: Const General: comfortable, no acute distress and well groomed HENMT Head: normal to inspection Eyes General: appearance normal, both eyes and all related structures Neck Neck: normal visual inspection Resp Effort & Inspection: normal respiratory effort and able to speak in complete sentences Neuro General: patient alert and patient oriented x3 Psych Appearance: grossly normal Mental Status: mental status grossly normal Speech and Movement: speech and movement normal Mood: congruent mood Affect: normal affect Attitude: cooperative Thought Process: normal Thought Content: normal Judgment: judgment good Discharge Plan Discharge Plan Patient Disposition: Home Discharge orders & Medications Prescriptions: New Dermoplast (with menthol) 20-0.5 % Aerosol 1 spray topical Q1HR PRN (Reason: perineal pain) Qty: 56 0RF ibuprofen 600 mg Tablet 600 mg PO Q6HR PRN (Reason: Pain, Mild (1-3)) Qty: 30 0RF Purelan Cream 1 applic topical PRN PRN (Reason: Tenderness) Qty: 7 0RF acetaminophen 325 mg Tablet 650 mg PO Q6HR PRN (Reason: Pain, Mild (1-3)) Qty: 90 0RF Continued prenat.vits,gerardo,[id number] Tablet 1 tab PO DAILY Discontinued (DME) glucometer See Rx Instructions .Route .MEDSUPPLY Qty: 1 0RF Rx Instructions: test blood glucose 4 times daily (DME) lancets See Rx Instructions .Route .MEDSUPPLY Qty: 360 0RF Rx Instructions: test blood glucose 4 times daily (DME) glucose test strips See Rx Instructions .Route .MEDSUPPLY Qty: 360 0RF Rx Instructions: Test blood glucose 4 times daily (DME) sharps container See Rx Instructions .Route .MEDSUPPLY Qty: 1 0RF Rx Instructions: As directed Follow up/Referrals: Jany Hopper MD [Physician] - (6 week appt w/ Dr. Hopper: @ 10am) Visit Report/Discharge Packet Stand Alone Forms: Discharge: Care, Patient Portal/API, Stroke Signs & Symptoms Discharge Data Primary Care Provider: Jenny Shook
[2023-06-13] MEDS: RHO(D) IMMUNE GLOBULIN 1,500 UNIT SYRINGE 1500 UNIT IM (14:39)
== END 2023-06-13 16:00 | disposition home or self-care (01) | DRG 560 ==
PROVIDERS: Admitting Provider Student in an Organized Health Care Education/Training Program; PCP Family Medicine; Referring Provider Student in an Organized Health Care Education/Training Program; Visit Provider Student in an Organized Health Care Education/Training Program
DX: O24.410 Gestational diabetes mellitus in pregnancy, diet controlled (principal); Z3A.40 40 weeks gestation of pregnancy; Z37.0 Single live birth; O36.0130 Maternal care for anti-D [Rh] antibodies, third trimester, not applicable or unspecified; O70.1 Second degree perineal laceration during delivery
CPT/HCPCS: 36415; 59050; 59409; 85025; 86850; 86870; 86900; 86901; G0379; J2405; J2590; J2790

== ENCOUNTER → 2024-11-05 06:54 | Outpatient (CLI) | payer OTHER, SELFPAY ==
--- NOTE | 2024-11-05 06:55 | DI.US.S_ITS ---
PROCEDURE: US PELVIC COMPLETE INDICATIONS: Abnormal uterine bleeding TECHNIQUE: Real-time scanning was performed of the pelvic organs, with image documentation. Additional endovaginal scanning was necessary due to incomplete visualization of the adnexal and endometrial structures by transabdominal scanning. COMPARISON: None. FINDINGS: Uterus: Uterus is retroverted and normal in size at 7.1 x 5.7 x 4.5 cm. The myometrium is heterogeneous. The endometrium measures 5.3 mm combined thickness. Prominent myometrial vessels in increased vascularity to the myometrium. Right vaginal simple cyst measuring 1.8 x 1.1 x 1.1 cm. Punctate calcifications in the cervix. Ovaries: The right ovary measures 2.4 x 3.3 x 1.3 cm, with a calculated ovarian volume of 4.2 cc. The left ovary measures 2.6 x 2.0 x 1.5 cm, with a calculated ovarian volume of 4.1 cc. The ovaries have a normal sonographic appearance. Less than 12 follicles can be seen in each ovary. No adnexal masses are seen. Other: No pathologic free abdominal or pelvic fluid. IMPRESSION: The endometrium is normal in thickness measuring 5 mm. Prominent myometrial vessels increased vascularity to the uterus. Findings are nonspecific and may be seen with pelvic congestion syndrome, recommend clinical correlation. Right vaginal simple cyst measuring 1.8 cm. We strive to produce accurate, complete, and clear reports of imaging services. To assist us in improving patient care, this report was composed using standard report templates and voice recognition software. Therefore, it may contain abnormal punctuation, insertions and/or omissions. Occasional wrong-word or sound-alike substitutions may occur. Though we review the report and make efforts to correct it, we do recommend that the report be read carefully in proper context to recognize any text inaccuracies. Dictated by: Bhavik Perry M.D. on 11/05/2024 at 9:31 Approved by: Bhavik Perry M.D. on 11/05/2024 at 9:38
== END ==
PROVIDERS: PCP Student in an Organized Health Care Education/Training Program; Referring Provider Student in an Organized Health Care Education/Training Program; Visit Provider Student in an Organized Health Care Education/Training Program
DX: N93.9 Abnormal uterine and vaginal bleeding, unspecified (principal); N89.8 Other specified noninflammatory disorders of vagina
CPT/HCPCS: 76830; 76856

== ENCOUNTER → 2024-11-08 12:10 | Outpatient (CLI) | payer OTHER, SELFPAY ==
[2024-11-08 13:37] LABS: TSH w/ Reflex to FT4 2.44 uIU/mL (0.47-4.68)
== END ==
PROVIDERS: PCP Student in an Organized Health Care Education/Training Program; Referring Provider Student in an Organized Health Care Education/Training Program; Visit Provider Student in an Organized Health Care Education/Training Program
DX: N93.9 Abnormal uterine and vaginal bleeding, unspecified (principal)
CPT/HCPCS: 36415; 84443